=== PATIENT | female | born 1985 | race Caucasian/White ===

== ENCOUNTER 2017-04-26 14:15 | Emergency (ER) | payer OTHER ==
[~2017-04-26] VITALS: Ht 167.6 cm; Wt 62.9 kg
[~2017-04-26 14:15] MED LIST: IBUP-1050 PO; PRENTAB26 PO
[2017-04-26 14:22] VITALS: TEMP 36.7; Ht 167.6 cm; Wt 62.9 kg
[2017-04-26] MEDS ORDERED: CLC/300 PO (15:49)
[2017-04-26] MEDS ORDERED: CEPH500C PO (15:49)
--- NOTE | 2017-04-26 15:50 | EMERGENCY ROOM VISIT NOTE ---
ED Visit Note First contact with patient: 15:27 CHIEF COMPLAINT: Swollen, tender cyst on the right forehead 2-3 days HISTORY OF PRESENT ILLNESS: Patient is an otherwise healthy 31-year-old white female who presents to emergency department for evaluation of a cyst on her right forehead. She states that it has progressively become more tender and swollen over the last couple of days. She states that it became very inflamed and infected about 2 months ago, at which point it made her whole forehead red, warm and swollen and he gave her a headache. She was treated with a roughly 2 week course of Keflex at that time and her symptoms improved. The patient is concerned that similar infection will develop if she does not get started on antibiotics and she does not want to wait until that point. She is also traveling out of town for the week leaving tomorrow morning. At the present time she rates her pain a 0/10. She denies any drainage or discharge from the area. No fever or chills. She denies any injury to the area. REVIEW OF SYSTEMS: Review of systems as per HPI. All other systems reviewed were negative. At least 6 systems reviewed. PMH: Electronic medical records are reviewed and summarized as above/below. See Problem List. Her tetanus is up-to-date. SOCIAL HISTORY: Patient lives at home with her and children. Employed. Nonsmoker. PHYSICAL EXAM: Vital Signs: Reviewed Nurse's notes. GENERAL: Patient is a pleasant, well-appearing 31-year-old white female who is awake and alert and in no acute distress. INTEGUMENTARY: On the right forehead, just below the hairline, the patient has a roughly 1 cm firm, mobile, nontender, cystic appearing lesion. There is some very slight erythema noted. There is no fluctuance or pointing. No lymphangitic streaking. EMERGENCY DEPARTMENT COURSE: The patient was seen and evaluated as above. The area is not fluctuant or pointing, and feels more solid/cystic in nature. It was not felt to be amenable to aspiration or I&D. She was encouraged to apply warm compresses to the area was placed on a course of Keflex. She may benefit from evaluation by plastic surgery at a later date to see if there is a cystic structure that might need to be removed. Differential diagnoses entertained included lipoma, sebaceous cyst, acne, abscess, among others. Area isn't consistent with a lymph node. Medication reconciliation: I attest that I have personally reviewed the patient' s current medication list. Blood pressure screening : Patient was found to have normal blood pressure on screening and does not require follow-up. Problem List Medical Problems: (1) Beta-hemolytic Streptococcus carrier Status: Resolved (2) Mastitis Status: Resolved (3) Missed Status: Resolved (4) Post-dates Status: Resolved Surgical Problems: (1) S/P ACL reconstruction Status: Resolved (2) S/P arthroscopic knee surgery Status: Resolved (3) S/P dilatation and curettage Status: Resolved Current/Historical Medications Scheduled Cephalexin Monohydrate (Keflex), 500 MG PO QID Clindamycin HCl (Clindamycin HCl), 1 CAP PO TID Multivit/Min/Iron/Fol Ac/Pren ( Vitamin), 1 TAB PO DAILY Allergies Coded Allergies: No Known Allergies (Unverified , 04/26/17) Vital Signs Date Time Temp Pulse Resp B/P (MAP) Pulse Ox O2 Delivery O2 Flow Rate FiO2 04/26/17 16:20 67 18 108/69 96 04/26/17 14:22 36.7 73 18 123/79 98 Room Air Departure Information Impression Primary Impression: Infected cyst of skin Prescriptions Clindamycin HCl (Clindamycin HCl) 300 Mg Cap 1 CAP PO TID for 10 Days, #30 CAP Prov: Kasandra Celeste PA 04/26/17 Cephalexin Monohydrate (Keflex) 500 Mg Cap 500 MG PO QID for 14 Days, #56 CAP Prov: Kasandra Celeste PA 04/26/17 Referrals Ra Law M.D. (PCP) Heidi Adams MD Patient Instructions My [facility] Additional Instructions Cephalexin(Keflex) 500mg: Take one pill four times daily for 10-14 days for your skin infection. All antibiotics can cause diarrhea. If this occurs and you feel worse or it does not resolve in 1-2 days follow up with your doctor or return to the Emergency Department as this could be signs of serious underlying problems. Any medication can cause an allergic reaction, stop the pills immediately and return to the ER for rash, hives, breathing difficulties, or swelling. Ibuprofen(Motrin, Advil) may be used for fever or pain. Use 600mg every six hours as needed. Take with food. Avoid using more than 2400mg in a 24 hour period. Do not use 2400mg per day for more than three consecutive days without physician direction. Prolonged inappropriate use can lead to stomach upset or ulcers. (AND/OR) Acetaminophen(Tylenol) may be used for fever or pain. Use 1000mg every six hours as needed. Avoid using more than 3000mg in a 24 hour period. Warm compresses to the affected area 4 times daily for 15-20 minutes. Rest and drink plenty of fluids. Continue current medications. Return to the ER for severe pain, persistent fevers, spreading redness, or any worsening of your condition. Follow up with your primary physician within 2-3 days for a recheck of the current condition. Follow-up with plastic surgery if you would like the area reevaluated.
[2017-04-26 16:20] VITALS: BP 108/69; PULSE 67; O2SAT 96
== END 2017-04-26 16:15 | disposition home or self-care (01) ==
LOC: C.EDB 14:16 → C.EDD 16:15
DX: L72.9 Follicular cyst of the skin and subcutaneous tissue, unspecified (principal)

== ENCOUNTER → 2017-05-26 | Outpatient (CLI) | payer OTHER ==
[~2017-05-26] MED LIST changes: -IBUP-1050 PO
[2017-05-26 16:29] LABS: URINE APPEARANCE CLEAR (CLEAR); URINE BILIRUBIN NEG (NEG); URINE COLOR YELLOW; URINE NITRITE NEG (NEG); URINE PH 5.5 (4.5-7.5); URINE SPECIFIC GRAVITY 1.016 (1.000-1.030); UROBILINOGEN NEG (NEG)
[2017-05-26 16:35] LABS: MANUAL MICROSCOPIC REQUIRED? NO; REVIEW REQ? NO
== END | disposition home or self-care (01) ==
LOC: C.LABSPEC 16:14
PROVIDERS: ATTEND Obstetrics & Gynecology
DX: Z34.81 Encounter for supervision of other normal pregnancy, first trimester (principal)

== ENCOUNTER → 2017-05-29 | Outpatient (CLI) | payer OTHER | END | disposition home or self-care (01) | LOC: C.PATHSPEC 17:47 | PROVIDERS: ATTEND Plastic Surgery | DX: L72.3 Sebaceous cyst (principal); L92.3 Foreign body granuloma of the skin and subcutaneous tissue ==

== ENCOUNTER → 2017-06-02 | Outpatient (CLI) | payer OTHER ==
[2017-06-07 15:50] LABS: CHLAMYDIA TRACH RNA*** NOT DETECTED (NOT DETECTED); GC (NEIS GONORRHOEAE)RNA** NOT DETECTED (NOT DETECTED)
== END | disposition home or self-care (01) ==
LOC: C.LABSPEC 16:13
PROVIDERS: ATTEND Obstetrics & Gynecology
DX: Z34.81 Encounter for supervision of other normal pregnancy, first trimester (principal)

== ENCOUNTER → 2017-06-02 | Outpatient (CLI) | payer OTHER ==
[2017-06-02 14:46] LABS: BASO % 0.2 %; BASO ABS # 0.02 K/uL (0-0.2); COMPLETE YES; HEMATOCRIT 38.8 % (37-47); IG% 0.3 %; LYMPH % 19.8 %; LYMPH ABS # 2.33 K/uL (1.2-3.4); MEAN CELL VOLUME 87.4 fL (80-100); MEAN CORPUSCULAR HEMOGLOBIN 31.3 pg (25-34); MEAN CORPUSCULAR HGB CONC 35.8 g/dl (32-36); MONO % 6.1 %; NEUT % 72.6 %; PLATELET COUNT 260 K/uL (130-400); RED BLOOD COUNT 4.44 M/uL (4.2-5.4); WHITE BLOOD COUNT 11.79 K/uL (4.8-10.8)
== END | disposition home or self-care (01) ==
LOC: C.LAB1850 13:06
PROVIDERS: ATTEND Physician Assistant
DX: Z34.81 Encounter for supervision of other normal pregnancy, first trimester (principal)

== ENCOUNTER → 2017-07-21 | Outpatient (CLI) | payer OTHER | END | disposition home or self-care (01) | LOC: C.LAB1850 14:58 | PROVIDERS: ATTEND Obstetrics & Gynecology | DX: Z34.82 Encounter for supervision of other normal pregnancy, second trimester (principal) ==

== ENCOUNTER 2017-09-16 05:42 | Emergency (ER) | payer OTHER ==
[~2017-09-16] VITALS: Ht 167.6 cm; Wt 72.5 kg
[2017-09-16 05:46] VITALS: Ht 167.6 cm; Wt 72.5 kg
[2017-09-16] MEDS ORDERED: ACET-1256 PO (06:09)
[2017-09-16] MEDS ORDERED: LIDOCAINE HCL 2% 2 ML VIAL (20MG/ML) INFIL STA (06:21)
[2017-09-16] MEDS ORDERED: DOCUSATE SODIUM 100 MG/10 ML UDC PO STA (06:28)
--- NOTE | 2017-09-16 06:39 | EMERGENCY ROOM VISIT NOTE ---
History Report prepared by Antonio: Lin [place] Under the Supervision of: Dr. Delmy Alcaraz D.O. First contact with patient: 05:52 Chief Complaint: EAR PAIN Stated Complaint: INTENSE RT EAR PAIN-2WKS,BEEN TO DRS TWICE History of Present Illness The patient is a 32 year old female who presents to the Emergency Room with complaints of a worsening ear pain starting two weeks ago. The patient states that the pain started out as mild and became worse. She states that her mother- in-law is a nurse practitioner. She reports that she looked in her ear and tried to move the wax impaction since it was slightly red. She states that she got an appointment with Randee Dukes who told her she did have an impaction. She states that they tried to flush it and couldn't get it out. She reports that they put her on Debrox drops for the week. The patient notes that her ear throbs after using the Debrox. She reports that she used them all week and her tried to flush it with soapy water and a bulb syringe. She states that this made it very irritated so they stopped flushing it for a few days. The patient reports that her mother in law tried to get it out again five days ago and was not able to. She states that her bskmes-ha-bpb said the ear canal and drum are red. The patient states that the pain has increased in the past 2 days and that she took a Percocet with a little relief. She describes it as excruciating. She states that she has been taking Tylenol the entire time with no relief. She reports that she went back to the doctors and was told that the ear canal looked irritated. The patient reports that the doctor told her it wasn 't a deep tissue infection. She states that she was given Neomycin and Polymyxin with Hydrocortisone that she started Thursday. She reports that she has not been able to hear and sleep for the past 2 days. The patient complains that the pain has started to move down her neck. The patient denies visual changes, fever, and chills. She notes that she did not get a lot of ear infections as kids and never had tubes. She notes that she is currently 24 weeks . No other URI symptoms, no swelling around the ear. Source of History: patient Onset: 2 weeks ago Position: ear Symptom Intensity: excruciating Quality: other (throbbing) Timing: worsening Modifying Factors (Relieving): other (Percocet) Associated Symptoms: No fevers, No chills Note: The patient complains of the pain moving down her neck. The patient denies visual changes. Review of Systems See HPI for pertinent positives & negatives. A total of 6 systems reviewed and were otherwise negative. Past Medical & Surgical Medical Problems: (1) Beta-hemolytic Streptococcus carrier (2) Mastitis (3) Missed (4) No Known Active Medical Problems (5) Post-dates Surgical Problems: (1) S/P ACL reconstruction (2) S/P arthroscopic knee surgery (3) S/P dilatation and curettage Family History Patient reports no known family medical history. Social History Smoking Status: Never Smoker Marital Status: Housing Status: lives with family Occupation Status: employed Current/Historical Medications Scheduled Multivit/Min/Iron/Fol Ac/Pren ( Vitamin), 1 TAB PO DAILY Scheduled PRN Acetaminophen (Tylenol), 1,000 MG PO Q6 PRN for Pain Allergies Coded Allergies: No Known Allergies (Unverified , 09/16/17) Physical Exam Vital Signs Date Time Temp Pulse Resp B/P (MAP) Pulse Ox O2 Delivery O2 Flow Rate FiO2 09/16/17 12:09 68 20 100/49 98 09/16/17 11:29 94 14 108/67 96 Room Air 09/16/17 09:32 89 20 116/85 99 Room Air 09/16/17 05:46 93 18 117/76 95 Room Air Physical Exam GENERAL: alert, well appearing, well nourished, no distress, non-toxic EAR: Right- No pain with movement of pinna. No mastoid tenderness. No periauricular lymphadenopathy. Cerumen noted in the canal. Erythema noted in the canal also. No edema. Unable to visualize TM. Left - normal canal and normal TM. EYE EXAM: normal conjunctiva, PERRL and EOM's grossly intact OROPHARYNX: no exudate, no erythema, lips, buccal mucosa, and tongue normal and mucous membranes are moist NECK: supple, no nuchal rigidity, no adenopathy, non-tender SKIN: no rashes and no bruising UPPER EXTREMITIES: upper extremities are grossly normal. LOWER EXTREMITIES: No pitting edema. NEURO EXAM: Normal sensorium, cranial nerves II-XII grossly intact, normal speech, no gross weakness of arms, no gross weakness of legs. Medical Decision & Procedures Medications Administered Medications (Trade) Dose Ordered Sig/Marshal Route Start Time Stop Time Status Last Admin Dose Admin Docusate Sodium (coLACE SYRUP) 100 mg NOW STAT PO 09/16/17 06:28 09/16/17 06:29 DC 09/16/17 06:28 100 MG Acetaminophen (Tylenol Tab) 1,000 mg NOW STAT PO 09/16/17 09:26 09/16/17 09:27 DC 09/16/17 09:31 1,000 MG Lidocaine HCl (Viscous Lidocaine 2% Soln) 20 ml STK-MED ONCE .ROUTE 09/16/17 12:01 09/16/17 12:02 DC 09/16/17 12:01 20 ML ED Course 0553: The patient was evaluated in room B3B. A complete history and physical exam was performed. 0600: Solution of hydrogen peroxide/water instilled into canal and allowed to sit for as long as patient could tolerate and another attempt at manual removal attempted with partial success. 0621: Ordered Lidocaine HCl 2 ml INFIL. 0628: Ordered Docusate Sodium 100 mg PO. 0745: Pt being irrigated again. Asked morning PA/doc to recheck ear after nurses finished to visualize TM on that side. Pt aware of plan and agreeable. Advised close f/u with ENT. Medical Decision Pt here with worsening right ear pain and obvious cerumen impact. Multiple attempts at irrigation performed. No mastoid tenderness, no evidence of lymphadenopathy, no fever/chills, no other URI symptoms. no hx of prior ear/TM trauma or frequent infections. No tinnitus. [place] Drug Monitoring Program Search Results: patient reviewed within database Medication Reconcilliation Current Medication List: was personally reviewed by me Blood Pressure Screening Patient's blood pressure: Normal blood pressure Blood pressure disposition: Did not require urgent referral Impression Primary Impression: Cerumen impaction Scribe Attestation The scribe's documentation has been prepared under my direction and personally reviewed by me in its entirety. I confirm that the note above accurately reflects all work, treatment, procedures, and medical decision making performed by me. Departure Information Dispostion Home / Self-Care Referrals No Doctor, Assigned (PCP) Forms HOME CARE DOCUMENTATION FORM, IMPORTANT VISIT INFORMATION, WORK / SCHOOL INSTRUCTIONS Patient Instructions My [facility] Additional Instructions Please only use Qtips on the outside portion of the ear. Please use the Debrox drops to help keep the ear wax soft and easily removed. Problem Qualifiers Primary Impression: Cerumen impaction Laterality: right Qualified Codes: H61.21 - Impacted cerumen, right ear
[2017-09-16] MEDS ORDERED: ACETAMINOPHEN 500 MG TAB PO STA (09:26)
[2017-09-16] MEDS ORDERED: LIDOCAINE HCL 2% VISC SOLN 20 ML UDC ONE (12:01)
[2017-09-16 12:09] VITALS: BP 100/49; PULSE 68; O2SAT 98
--- NOTE | 2017-09-16 12:23 | EMERGENCY ROOM VISIT NOTE ---
ED Visit Note ED NOTE: Patient was reassessed after earwax irrigation was completed. At this point, the superior portion of the TM was able to be visualized and was intact and non- erythematous, but a majority of the TM remained obscured by soft cerumen. I attempted to remove the remaining cerumen with both alligator forceps and a curette as nwell as suction, all which were unsuccessful and patient could not really tolerate any further manipulation. At this point I did speak with Dr. Bhagat with ENT surgery, and he will be able to see the patient this afternoon. This was discussed with the patient and she was in agreement. She was discharged from emergency department to go to his office for evaluation.
== END 2017-09-16 12:13 | disposition home or self-care (01) ==
LOC: C.EDB 05:43
DX: O99.89 Other specified diseases and conditions complicating pregnancy, childbirth and the puerperium (principal); H61.21 Impacted cerumen, right ear; Z3A.24 24 weeks gestation of pregnancy; Z98.890 Other specified postprocedural states

== ENCOUNTER → 2017-10-13 | Outpatient (CLI) | payer OTHER ==
[~2017-10-13] MED LIST changes: +ACET-1256 PO
[2017-10-13 10:17] LABS: HEMATOCRIT 35.6 % (37-47); HEMOGLOBIN 12.2 g/dL (12.0-16.0)
== END | disposition home or self-care (01) ==
LOC: C.LAB1850 08:51
PROVIDERS: ATTEND Obstetrics & Gynecology
DX: Z34.83 Encounter for supervision of other normal pregnancy, third trimester (principal)

== ENCOUNTER → 2018-02-19 | Outpatient (CLI) | payer OTHER ==
[~2018-02-19] MED LIST changes: -ACET-1256 PO
== END | disposition home or self-care (01) ==
LOC: C.PAPS 16:14
PROVIDERS: ATTEND Obstetrics & Gynecology
DX: Z12.4 Encounter for screening for malignant neoplasm of cervix (principal)

== ENCOUNTER 2020-08-09 07:57 | Inpatient (IN) ==
--- NOTE | 2020-08-09 08:27 | History & Physical Report ---
Date of Service August 09, 2020 Assessment & Plan (1) Encounter for induction of labor: PNL: Rh pos, RI, GBS neg Admit, labs, start IV Epidural when desired; anesthesiology consult placed Proceed with induction of labor. Patient elects to start with AROM. Will continue with Pitocin per Pitocin augmentation protocol if needed. Anticipate She had covid on 05/23/20, lost taste and smell. Multiple family members positive at that time as well. Admission and Anticipated Discharge Date Admission Date: August 09, 2020 History of Present Illness Primary Care Provider: Ra Law MD Grisel Gonzalez is a 35 y/o female currently at 40 + 4/7 weeks gestational age with an DEJA 08/05/2020 as determined by LMP who is here for IOL due to postdates. Her was complicated by AMA and COVID infection with past 90 days. + irregular contractions; + movement; - fluid loss; - bloody show Had regular appointments with OB. Blood type: O+ Antibody screen: negative Labs 01/02/2020 Rubella: immune VDRL/RPR: NR Gonorrhea: negative Chlamydia: negative HIV: negative HbSAg: negative GBS: negative 07/10/20 Other screens: declined genetics/cf/sma Allergies Allergy/AdvReac Type Severity Reaction Status Date / Time No Known Allergies Allergy Verified 08/08/20 19:53 Home Medications Medication Instructions Recorded Confirmed Type prenat.vits,alec,tsp-apov-cufei 1 tab PO DAILY 04/11/19 08/09/20 History Patient History Medical History Female infertility Spontaneous Supervision of normal intrauterine in multigravida Varicella Surgical History H/O foot surgery History of dilation and curettage S/P knee surgery Family History Grandfather (Paternal) Diabetes Heart disease Other Colorectal cancer Parkinson disease Social History Smoking Status: Never smoker Hx Alcohol Use: No Hx Substance Use: No Preferred Language: Chinese Communication Ability: Effective Beliefs That Will Affect Care: None marital status: marital status details: Jesús Gonzalez (35) [phone] Current Living Situation: Spouse and Family Current Living Situation Comment: spouse and 3 children current occupational status: unemployed current occupation: homemaker Other Information That Helps Us Care for You: No Feels Safe at Home: Yes Safety Concerns: Feels Safe At This Time Sunscreen Use: Yes Assistive Devices: None OB History Currently : delivered 03/18/12 at 42 weeks, IOL, lbr length 24 hours, weight 8-1, male, w/ epidural, delivered by Dr. Bernal at [facility] G2: 10/27/13 demise, D&E at 8 weeks [place] G3: 11/06/14 spontaneous at 6 weeks [place] G4: delivered 09/25/15 at 40 weeks, lbr length 4.5 hours, weight 7-13, female, w/ epidural, delivered by Dr. Villanueva at [facility] G5: delivered 01/06/18 at 40 weeks, lbr length 7 hours, weight 9-6, male, w/ epidural, delivered by Dr. Prince at [facility] Review of Systems Denies fever or chills. Denies shortness of breath or cough. Denies chest pain. Denies breast pain. Denies dysuria or hematuria. Denies leg pain or leg swelling. Denies headache or changes in vision. Physical Exam Physical Exam: General: Alert, oriented. No acute distress. Cardiac: Regular rate and rhythm, no murmurs/rubs/gallops. Respiratory: Clear to auscultation bilaterally a/p, no wheezes/rales/rhonchi. No increased work of breathing. Symmetrical chest rise. No respiratory distress. Abdomen: Gravid. Vertex position. + heart tones. - palpable contractions. EFW 7-8# Pelvic: Dilation 2.5 cm; Effacement 75%; Station -[address] Brooks External FHT and external uterine monitors used; Category I tracing; moderate FHT variability, + accels. Lower Extremities: No lower extremity edema or swelling. No deep calf pain. Abhilash's negative bilaterally Results & Data ([facility]) Vital Signs (Past 12 Hours) Vital Signs Temp Pulse Resp BP 08/09/20 08:03 36.7 C 20 08/09/20 08:01 82 116/75 Supervising Physician Co-Signing Physician Notes Patient sen and evaluated and agree with the above findings and plan Resident Activity Tracking Resident Involvement: Resident Care Provided Care Provided: OB Delivery
[2020-08-09] MEDS ORDERED: OXYTOCIN 30 UNITS/500 ML BAG IV PRN ×3 (08:39→17:19)
[2020-08-09 09:11] LABS: Hemoglobin 12.3 g/dL (12.0-16.0); Mean Corpuscular Hemoglobin 29.3 pg (25-34); Mean Corpuscular Hgb Conc 34.2 g/dL (32-36); Mean Corpuscular Volume 85.7 fL (80-100); Mean Platelet Volume 9.9 fL (7.4-10.4); Platelet Count 278 K/uL (130-400); RDW Coefficient of Variation 13.7 % (11.5-14.5); RDW Standard Deviation 42.8 fL (36.4-46.3); White Blood Count 11.34 K/uL (4.8-10.8)
[2020-08-09] MEDS: LACTATED RINGER'S 1,000 ML IV PRN ×3 (12:54→14:32)
--- NOTE | 2020-08-09 13:13 | Labor Progress Brief Note ---
Date of Service August 09, 2020 Subjective Reason For Note: Routine Evaluation Assessment & Plan (1) Post term over 40 weeks: (2) Supervision of elderly multigravida, antepartum: Progressing well. s/p AROM - clr. Vitals WNL. (3) Encounter for induction of labor: Admission and Anticipated Discharge Date Admission Date: August 09, 2020 Physical Exam Constitutional: WD/WN, vitals as above Psychiatric: A+Ox3, euthymic affect Genitourinary: OB Exam Abdomen: + vertex Manual OB Exam: + cervical dilation (3.5), + cervical effacement 80%, + station -1 and + amniotic fluid clear OB Exam Monitor Tracing: + external FHT monitor used, + external uterine monitor used, + category I, + normal FHT variability and + early decelerations present; no late decelerations present and no variable decelerations Results [facility] ([facility]) Vital Signs (Past 12 Hours) Vital Signs Temp Pulse Resp BP 08/09/20 11:51 73 107/72 08/09/20 11:50 36.8 C 08/09/20 10:04 86 107/63 08/09/20 08:03 36.7 C 08/09/20 08:01 82 116/75 Coding Level of Care Code None Diagnoses Post term over 40 weeks O48.0 Supervision of elderly multigravida, antepartum O09.529 Encounter for induction of labor Z34.90
[2020-08-09] MEDS ORDERED: BUPIVACAINE 0.25% 30 ML VIAL ONE (13:27)
[2020-08-09] MEDS ORDERED: ePHEDrine sulfate 50 MG/ML AMP ONE (13:27)
[2020-08-09] MEDS ORDERED: fentaNYL citrate 100 MCG/2 ML VIAL ONE (13:27)
[2020-08-09] MEDS ORDERED: SODIUM CHLORIDE 0.9% INJ 10 ML VIAL ONE (13:27)
[2020-08-09] MEDS ORDERED: fentaNYL 2MCG/ML ROPIVACAINE 1.25MG/ML 100 ML BAG EPI ONE (13:28)
--- NOTE | 2020-08-09 14:17 | Anesthesiology Consultation ---
Date of Service August 09, 2020 Assessment & Plan Chart Review Chart Review: Acceptable Risk for Labor Epidural Consults Requested none History Height/Weight Height: 5 ft 6 in Weight: 74.389 kg Allergies Allergy/AdvReac Type Severity Reaction Status Date / Time No Known Allergies Allergy Verified 08/08/20 19:53 Medications Home Medications Medication Instructions Recorded Confirmed Last Taken prenat.vits,alec,xwb-tyyk-irfni 1 tab PO DAILY 04/11/19 08/09/20 08/08/20 20:00 Active Medications Generic Name Dose Route Start Last Admin Trade Name Freq PRN Reason Stop Dose Admin Lactated Ringer's 1,000 mls @ 125 mls/hr 08/09/20 08:39 08/09/20 13:23 Lr IV 08/11/20 08:38 999 mls/hr .Q8H PRN Administration L&D Protocol Protocol Past Medical History Medical History Female infertility Spontaneous Supervision of normal intrauterine in multigravida Varicella Past Family History Family History Grandfather (Paternal) Diabetes Heart disease Other Colorectal cancer Parkinson disease Past Surgical History Surgical History H/O foot surgery History of dilation and curettage S/P knee surgery Social History Smoking Status: Never smoker Hx Alcohol Use: No Hx Substance Use: No substance use type: does not use Physical Exam Vital Signs Last Vital Signs Temp 36.8 C 08/09/20 11:50 Pulse 78 08/09/20 14:14 Resp 18 08/09/20 13:24 BP 125/61 08/09/20 14:11 Pulse Ox 91 08/09/20 14:14 Testing Laboratory Results 08/09/20 08:53
[2020-08-09] MEDS ORDERED: NALOXONE HCL 1 MG in SODIUM CHLORIDE 0.9% 1000ML 1,000 ML IV PRN (14:20)
[2020-08-09] MEDS ORDERED: NALOXONE HCL 0.4 MG/1 ML VIAL/CARP IV PRN (14:20)
[2020-08-09] MEDS ORDERED: diphenhydrAMINE 50 MG/ML VIAL IV PRN (14:20)
[2020-08-09] MEDS ORDERED: fentaNYL 2MCG/ML ROPIVACAINE 1.25MG/ML 100 ML BAG EPI PRN (14:20)
[2020-08-09] MEDS ORDERED: ePHEDrine sulfate 50 MG/ML AMP IV PRN (14:20)
--- NOTE | 2020-08-09 15:27 | Labor Progress Brief Note ---
Date of Service August 09, 2020 Subjective Reason For Note: Routine Evaluation Assessment & Plan (1) Encounter for induction of labor: Progressing, S/p AROM, Epidural placed. Vitals wnl Admission and Anticipated Discharge Date Admission Date: August 09, 2020 Physical Exam Genitourinary: Manual OB Exam: + cervical dilation (4.5), + cervical effacement 90%, + station -1 and + amniotic fluid clear OB Exam Monitor Tracing: + external FHT monitor used, + external uterine monitor used, + category I and + early decelerations present; no late decelerations present and no variable decelerations Results & Data ([facility]) Vital Signs (Past 12 Hours) Vital Signs Temp Pulse Resp BP Pulse Ox 08/09/20 15:23 73 97/52 L 08/09/20 15:21 77 98 08/09/20 15:16 74 98 08/09/20 15:14 73 105/62 08/09/20 15:11 77 100 08/09/20 15:06 70 98 08/09/20 15:01 74 20 98 08/09/20 14:56 69 98 08/09/20 14:54 63 111/65 08/09/20 14:51 69 98 08/09/20 14:46 64 20 99 08/09/20 14:41 62 99 08/09/20 14:38 71 115/69 08/09/20 14:36 75 113/64 99 08/09/20 14:34 74 122/72 08/09/20 14:32 75 123/68 08/09/20 14:31 72 20 99 08/09/20 14:30 78 111/60 08/09/20 14:28 68 107/59 L 08/09/20 14:26 67 111/61 99 08/09/20 14:24 68 114/64 08/09/20 14:22 70 106/59 L 08/09/20 14:21 70 99 08/09/20 14:20 71 111/73 08/09/20 14:18 73 111/73 08/09/20 14:16 83 100 08/09/20 14:15 20 08/09/20 14:14 78 91 08/09/20 14:11 73 125/61 08/09/20 14:10 87 96 08/09/20 14:06 91 H 103/57 L 08/09/20 14:05 89 97 08/09/20 14:04 96 H 107/59 L 08/09/20 14:00 77 139/69 97 08/09/20 13:55 91 H 97 08/09/20 13:50 78 98 08/09/20 13:46 86 112/75 08/09/20 13:45 74 85 L 08/09/20 13:40 73 86 L 08/09/20 13:24 18 08/09/20 11:51 73 107/72 08/09/20 11:50 36.8 C 20 08/09/20 10:04 86 107/63 08/09/20 08:03 36.7 C 20 08/09/20 08:01 82 116/75 Coding Level of Care Code None Diagnoses Encounter for induction of labor Z34.90
[2020-08-09] MEDS ORDERED: ACETAMINOPHEN 325 MG TAB PO PRN (17:02)
[2020-08-09] MEDS ORDERED: bisacodyL 10 MG SUPP PR PRN (17:19)
[2020-08-09] MEDS ORDERED: DIPHTHERIA/TETANUS/PERTUSSIS 0.5 ML SYR/VIAL IM ONE (17:19)
[2020-08-09] MEDS ORDERED: BENZOCAINE 20% AER SPR 82.5 GM CAN EXT PRN (17:19)
[2020-08-09] MEDS ORDERED: SUPERCREAM 0.870% 15 GM JAR EXT PRN (17:19)
[2020-08-09] MEDS ORDERED: ACETAMINOPHEN W/CODEINE #3 1 TAB PO PRN (17:19)
[2020-08-09] MEDS ORDERED: HYDROCORTISONE ACETATE 25 MG SUPP PR PRN (17:19)
--- NOTE | 2020-08-09 17:51 | Delivery Summary ---
DATE OF OPERATION: 08/09/2020 PROCEDURE: Normal spontaneous vaginal delivery, first-degree perineal laceration repair. SURGEON: Dominic Brooks MD. PREOPERATIVE DIAGNOSES: 1. Single intrauterine at 40 weeks 4 days gestational age. 2. Advanced maternal age. POSTOPERATIVE DIAGNOSES: 1. Single intrauterine at 40 weeks 4 days gestational age. 2. Advanced maternal age. 3. Status post delivery. ESTIMATED BLOOD LOSS: 200 mL. DRAINS: None. FLUIDS: Continuous lactated Ringer. URINE OUTPUT: Not measured. COMPLICATIONS: None. FINDINGS: Viable male with weight pending and Apgars of 9 and 10 at one and five minutes, respectively. INDICATIONS: Grisel is a 35-year-old , admitted at 40 weeks 4 days gestational age for induction of labor for postdates. On initial presentation, she was found to be 2.5 cm dilated. She underwent artificial rupture of membranes for clear fluid. She continued to progress in labor without further augmentation to complete-complete, +2 station, at which time she felt a strong urge to push. The patient received an epidural for anesthesia. DESCRIPTION OF PROCEDURE: The patient progressed to 10 cm dilated, 100% effaced, +2 station, pushed over intact perineum with epidural anesthesia and delivered a viable male , weight and Apgars as noted above. Head of delivered in JOYEC position, restituted to left transverse. No nuchal cord was noted. Body and shoulders quickly followed. was noted to be vigorous upon delivery and a 1-minute delayed cord clamping was initiated. Cord was then double clamped and cut. remained on maternal abdomen and still noted to be vigorous. Cord blood was obtained. Attention was then turned to deliver the placenta, which was delivered intact, 3-vessel cord, gentle cord traction. On inspection of perineum, vagina, and cervix, there was noted to be a first degree perineal laceration, which was repaired with 3-0 Vicryl in continuous running stitch. Needle, sponge and instrument counts were correct at the completion of the case. Both mother and were stable in the immediate post-delivery period. I attest to the content of the Intraoperative Record and any orders documented therein. Any exception s are noted below.
--- NOTE | 2020-08-09 17:56 | Anesthesiology Progress Note ---
Date of Service August 09, 2020 Anesthesia Post Procedure Vital Signs Vital Signs: Temp Pulse Resp BP Pulse Ox 08/09/20 17:42 20 08/09/20 17:36 85 126/65 08/09/20 17:27 20 08/09/20 17:12 75 20 137/81 08/09/20 16:57 80 20 125/66 08/09/20 16:53 84 131/77 08/09/20 16:46 75 97 08/09/20 16:43 110 H 89 L 08/09/20 16:41 98 H 99 08/09/20 16:36 82 100 08/09/20 16:31 72 99 08/09/20 16:26 68 98 08/09/20 16:23 70 108/69 08/09/20 16:21 69 98 08/09/20 16:16 68 100 08/09/20 16:11 77 97 08/09/20 16:08 36.8 C 83 107/68 08/09/20 16:06 97 H 98 08/09/20 16:01 78 20 95 08/09/20 15:56 75 98 08/09/20 15:54 78 106/62 08/09/20 15:51 72 98 08/09/20 15:46 83 20 98 08/09/20 15:41 80 98 08/09/20 15:39 71 106/57 L 08/09/20 15:36 76 98 08/09/20 15:31 75 20 97 08/09/20 15:26 75 99 08/09/20 15:23 73 97/52 L 08/09/20 15:21 77 98 08/09/20 15:16 74 20 98 08/09/20 15:14 73 105/62 08/09/20 15:11 77 100 08/09/20 15:06 70 98 08/09/20 15:01 74 20 98 08/09/20 14:56 69 98 08/09/20 14:54 63 111/65 08/09/20 14:51 69 98 08/09/20 14:46 64 20 99 08/09/20 14:41 62 99 08/09/20 14:38 71 115/69 08/09/20 14:36 75 113/64 99 08/09/20 14:34 74 122/72 08/09/20 14:32 75 123/68 08/09/20 14:31 72 20 99 08/09/20 14:30 78 111/60 08/09/20 14:28 68 107/59 L 08/09/20 14:26 67 111/61 99 08/09/20 14:24 68 114/64 08/09/20 14:22 70 106/59 L 08/09/20 14:21 70 99 08/09/20 14:20 71 111/73 08/09/20 14:18 73 111/73 08/09/20 14:16 83 100 08/09/20 14:15 20 08/09/20 14:14 78 91 08/09/20 14:11 73 125/61 08/09/20 14:10 87 96 08/09/20 14:06 91 H 103/57 L 08/09/20 14:05 89 97 08/09/20 14:04 96 H 107/59 L 08/09/20 14:00 77 139/69 97 08/09/20 13:55 36.9 C 91 H 97 08/09/20 13:50 78 98 08/09/20 13:46 86 112/75 08/09/20 13:45 74 85 L 08/09/20 13:40 73 86 L 08/09/20 13:24 18 08/09/20 11:51 73 107/72 08/09/20 11:50 36.8 C 20 08/09/20 10:04 86 107/63 08/09/20 08:03 36.7 C 20 08/09/20 08:01 82 116/75 Transfer of Care Handoff Completed per policy Notes Mental Status: alert / awake / arousable and participated in evaluation Patient Amnestic to Procedure: Yes Nausea / Vomiting: adequately controlled Pain: adequately controlled Airway Patency, RR, SpO2: stable & adequate BP & HR: stable & adequate Hydration State: stable & adequate Neuraxial Anesthesia: was administered and sensory block is resolving Anesthetic Complications: no major complications apparent
[2020-08-09] MEDS: IBUPROFEN 600 MG TAB PO PRN (19:22)
[2020-08-10] MEDS: IBUPROFEN 600 MG TAB PO PRN ×5 (02:25→20:05)
[2020-08-10 06:12] LABS: Hemoglobin 10.4 g/dL (12.0-16.0); Mean Corpuscular Hemoglobin 29.1 pg (25-34); Mean Corpuscular Hgb Conc 33.5 g/dL (32-36); Mean Corpuscular Volume 86.6 fL (80-100); Mean Platelet Volume 9.9 fL (7.4-10.4); Platelet Count 247 K/uL (130-400); RDW Coefficient of Variation 13.7 % (11.5-14.5); RDW Standard Deviation 43.2 fL (36.4-46.3); Red Blood Count 3.58 M/uL (4.2-5.4)
--- NOTE | 2020-08-10 07:38 | Obstetrical Progress Note ---
Date of Service <Yoko Dhaliwal DO - Last Filed: 08/10/20 07:38> August 10, 2020 Assessment & Plan <Yoko Dhaliwal DO - Last Filed: 08/10/20 07:38> (1) state: PPD #1 - PNL: Rh pos, RI, GBS neg - Feels well today. Eating well, voiding well, ambulating well. - Pain well controlled with ibuprofen 600mg Q4H PRN - Routine care -- OOB, ambulation, diet progression as tolerated - After discharge will have 6 week follow-up with Dr. Brooks. (2) Post term over 40 weeks: Subjective <Yoko Dhaliwal DO - Last Filed: 08/10/20 07:38> Grisel Gonzalez is a 35 y/o female who is PPD #1 following spontaneous vaginal delivery after IOL due to postdates at 40 +4 weeks. She reports feeling well overall this morning. Minimal abdominal cramping and 4/10 pain well managed on analgesics; pain decreases to a 0-1/10 with the analgesia. Voiding without difficulty or dysuria. Tolerating meals overnight without difficulty, nausea, or vomiting. Patient has been able to ambulate some. She is passing gas. Has persistent lochia with some improvement this morning. Currently . Review of Systems Denies fever or chills. Denies shortness of breath or cough. Denies chest pain. Denies breast pain. Denies dysuria. Denies leg pain or leg swelling. Denies headache or changes in vision. Physical Exam <Yoko Dhaliwal DO - Last Filed: 08/10/20 07:38> General: Alert, oriented. No acute distress. Cardiac: Regular rate and rhythm. No murmurs. Respiratory: Clear to auscultation bilaterally a/p, no wheezes/rales/rhonchi. No increased work of breathing. Symmetrical chest rise. No respiratory distress. Abdomen: Soft, nontender, nondistended. Bowel sounds present. Uterus: Uterine fundus firm, palpable 1 cm above umbilicus. Lower Extremities: No lower extremity edema or swelling. No deep calf pain. Abhilash's negative bilaterally. Results & Data ([facility]) <Yoko Dhaliwal DO - Last Filed: 08/10/20 07:38> Vital Signs (Past 12 Hours) Vital Signs Temp Pulse Pulse Resp BP BP Pulse Ox 08/10/20 03:35 36.8 C 72 16 101/66 97 08/09/20 23:45 36.5 C 68 16 98/61 L 98 08/09/20 20:30 36.8 C 84 16 113/87 95 08/09/20 19:42 96 H 111/72 Laboratory Results 08/10/20 08/09/20 Range/Units 05:55 08:53 WBC 14.80 H 11.34 H (4.8-10.8) K/uL RBC 3.58 L 4.20 (4.2-5.4) M/uL Hgb 10.4 L 12.3 (12.0-16.0) g/dL Hct 31.0 L 36.0 L (37-47) % MCV 86.6 85.7 (80-100) fL MCH 29.1 29.3 (25-34) pg MCHC 33.5 34.2 (32-36) g/dL RDW Std Deviation 43.2 42.8 (36.4-46.3) fL RDW Coeff of Luisa 13.7 13.7 (11.5-14.5) % Plt Count 247 278 (130-400) K/uL MPV 9.9 9.9 (7.4-10.4) fL <Dominic Brooks MD - Last Filed: 08/10/20 08:14> Co-Signing Physician Notes Patient seen and evaluated and agree with the above finding and plan. Stable for discharge this evening if desired. Resident Activity Tracking <Yoko Dhaliwal DO - Last Filed: 08/10/20 07:38> Resident Involvement: Resident Care Provided Care Provided: OB Delivery
[2020-08-10] MEDS: DOCUSATE SODIUM 100 MG CAP PO SCH ×2 (08:18→20:05)
[2020-08-10] MEDS ORDERED: NON-FORMULARY MEDICATION (Prenat.Vits,Cal,Min-Iron-Folic tablet) PO SCH (09:00)
[2020-08-10] MEDS: PRENATAL VITAMIN 1 TAB PO SCH (11:49)
[2020-08-10] MEDS ORDERED: bisacodyL 5 MG TABEC PO SCH (20:00)
--- NOTE | 2020-08-11 06:18 | Obstetrical Progress Note ---
Date of Service <Yoko Dhaliwal DO - Last Filed: 08/11/20 06:17> August 11, 2020 Assessment & Plan <Yoko Brianne Dhaliwal DO - Last Filed: 08/11/20 06:17> (1) state: PPD #2 - PNL: Rh pos, RI, GBS neg - Feels well today. Eating well, voiding well, ambulating well. - Pain well controlled with ibuprofen 600mg Q4H PRN - Routine care -- OOB, ambulation, diet progression as tolerated - After discharge will have 6 week follow-up with Dr. Brooks. - Plan for d/c home today. Subjective <Yoko Dhaliwal DO - Last Filed: 08/11/20 06:17> Grisel Gonzalez is a 35 y/o female who is PPD #2 following spontaneous vaginal delivery at 40 +4 weeks. She reports feeling well overall this morning. Minimal abdominal cramping (most prominent during periods of ) and 1/10 pain well managed on analgesics. Voiding without dysuria. Tolerating meals overnight without difficulty. Patient has been able to ambulate some. She is pas sing gas. Has persistent lochia with some improvement this morning. Currently . Review of Systems Denies fever or chills. Denies shortness of breath or cough. Denies chest pain. Denies breast pain. Denies dysuria. Denies leg pain or leg swelling. Denies headache or changes in vision. Physical Exam <Yoko Dhaliwal DO - Last Filed: 08/11/20 06:17> General: Alert, oriented. No acute distress. Cardiac: Regular rate and rhythm. No murmurs. Respiratory: Clear to auscultation bilaterally a/p, no wheezes/rales/rhonchi. No increased work of breathing. Symmetrical chest rise. No respiratory distress. Abdomen: Soft, nontender, nondistended. Bowel sounds present. Uterus: Uterine fundus firm, palpable 2 cm below umbilicus. Lower Extremities: No lower extremity edema or swelling. No deep calf pain. Abhilash's negative bilaterally. Results & Data ([facility]) <Yoko Dhaliwal DO - Last Filed: 01/30/21 06:17> Vital Signs (Past 12 Hours) Vital Signs Temp Pulse Resp BP 08/10/20 23:45 36.6 C 73 18 97/61 L <Grisel Hamilton MD - Last Filed: 08/11/20 06:58> Co-Signing Physician Notes Resident Physician Supervision Note: I interviewed and examined the patient. Discussed with Dr. Dhaliwal and agree with findings and plan as documented in the note. Any exceptions or clarifications are listed here: None Documented By: Grisel Hamilton MD, FACOG Resident Activity Tracking <Yoko Dhaliwal DO - Last Filed: 08/11/20 06:17> Resident Involvement: Resident Care Provided Care Provided: OB Delivery
[2020-08-11 06:29] LABS: Hematocrit (blood only) 33.6 % (37-47); Hemoglobin 11.1 g/dL (12.0-16.0)
[2020-08-11] MEDS: IBUPROFEN 600 MG TAB PO PRN (08:47)
[2020-08-11] MEDS: DOCUSATE SODIUM 100 MG CAP PO SCH (08:47)
[2020-08-11] MEDS: PRENATAL VITAMIN 1 TAB PO SCH (08:47)
== END 2020-08-11 12:20 | disposition home or self-care (01) | DRG 807 ==
LOC: 4S1 07:57 → 4S2 20:27